=== PATIENT | male | born 1965 | race African-American/Black ===

== ENCOUNTER 2017-02-20 02:12 | Emergency (ER) | payer OTHER ==
[~2017-02-20] VITALS: Ht 172.7 cm; Wt 86.2 kg
--- NOTE | ~2017-02-20 | EKG ---
[place] [address] [employer] [place] [address] ELECTROCARDIOGRAM REPORT Name: EBONY DRIVER Room #: [id number] Admission: 02/20/17 Attend Phys: Discharge: 02/20/17 Date of : 69 Report #: [id number] THIS REPORT FOR: //name// [facility] ED Test Date: 2017-02-20 Test Time: 02:15:53 Pat Name: EBONY DRIVER Department: Room: Gender: Quality Intern: [place] : 1965 Requested By: Reji Sood Order Number: [id number] MD: Willy Aguiar Measurements Intervals [place]ord Rate: 78 P: 50 DE: 186 QRS: 57 QRSD: 89 T: 10 QT: 374 QTc: 426 Interpretive Statements Sinus rhythm Baseline wander in lead(s) I,aVR,aVL,V1,V3,V4,V5,V6 No previous ECG available for comparison Electronically Signed On 02-20-2017 13:17:52 CDT by Willy Aguiar [email or web address] <ELECTRONICALLY SIGNED> By: Willy Aguiar MD 02/20/17 1317 4 4 Willy Aguiar MD /NIGEL
[2017-02-20 02:20] VITALS: BP 106/67
[2017-02-20 02:40] LABS: ABSOLUTE NEUTROPHILS 4.2 thou/uL (1.4-8.2); BASOPHILS 0.8 % (0.0-2.0); EOSINOPHILS 2.2 % (0.0-3.0); HEMOGLOBIN 14.8 gm/dL (14.0-18.0); LYMPHOCYTES 27.3 % (24.0-44.0); MCH 28.6 pg (26.0-34.0); MCHC 34.5 g/dL (28.0-37.0); MONOCYTES 6.8 % (1.0-8.0); PLATELET COUNT 272 thou/uL (150-400); POLYS 62.9 % (36.0-66.0); RBC 5.18 mil/uL (4.50-6.00); RDW 12.9 % (10.5-14.5); WBC 6.6 thou/uL (4.0-11.0)
[2017-02-20 02:42] LABS: MANUAL DIFF NO
[2017-02-20 02:48] LABS: ANION GAP 9 mmol/L (7-16); BUN 13 mg/dL (7-18); CALCIUM 9.1 mg/dL (8.5-10.1); CHLORIDE 104 mmol/L (98-107); CO2 28 mmol/L (21-32); CREATININE 1.5 mg/dL (0.7-1.3); GLUCOSE 103 mg/dL (74-106); POTASSIUM 3.7 mmol/L (3.5-5.1); SODIUM 141 mmol/L (136-145)
[2017-02-20 02:53] LABS: APTT 29.9 Seconds (24.5-32.8); PROTIME 10.8 Seconds (9.3-11.4)
[2017-02-20 03:05] LABS: ALBUMIN 3.9 g/dL (3.4-5.0); ALKALINE PHOSPHATASE 82 U/L (46-116); CK-MB MASS 0.9 ng/mL (<0.5-3.6); NT-PRO BRAIN NAT PEPTIDE 5 pg/mL (<300); SGOT 16 U/L (15-37); SGPT 22 U/L (30-65); TOTAL BILIRUBIN 0.8 mg/dL (<0.1-1.0); TOTAL PROTEIN 7.4 g/dL (6.4-8.2); TROPONIN-I < 0.04 ng/mL (<0.04-0.07)
[2017-02-20] MEDS ORDERED: ATIVAN0.5 MG PO (03:12)
== END 2017-02-20 03:22 | disposition home or self-care (01) ==
LOC: ER 02:12
PROVIDERS: Emergency Medicine
DX: F41.0 Panic disorder [episodic paroxysmal anxiety] (principal); F43.21 Adjustment disorder with depressed mood; F10.99 Alcohol use, unspecified with unspecified alcohol-induced disorder